=== PATIENT | male | born 1980 | race Caucasian/White ===

== ENCOUNTER 2022-01-11 19:40 | Emergency (ER) | payer BC ==
[~2022-01-11] VITALS: Ht 185.4 cm; Wt 83.9 kg
[2022-01-11 19:55] VITALS: BP 140/88
--- NOTE | 2022-01-11 19:55 | NUR ---
to bed ambulatory
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
--- NOTE | 2022-01-11 20:50 | NUR ---
PT TAKEN TO CT
--- NOTE | 2022-01-11 21:00 | NUR ---
PT RETURN FROM CT
[2022-01-11 22:34] VITALS: BP 132/74
--- NOTE | 2022-01-11 22:36 | NUR ---
Patient discharged with v/s stable. Written and verbal after care instructions given and explained. Patient verbalized understanding. Ambulatory with steady gait. All questions addressed prior to discharge. Advised to follow up with PMD.
== END 2022-01-11 22:36 | disposition home or self-care (01) ==
LOC: MED 19:40
DX: S09.90XA Unspecified injury of head, initial encounter (principal); Z88.0 Allergy status to penicillin; V49.88XA Car occupant (driver) (passenger) injured in other specified transport accidents, initial encounter; Y93.89 Activity, other specified; Y92.89 Other specified places as the place of occurrence of the external cause; Y99.8 Other external cause status
CPT/HCPCS: 70450; 99284